=== PATIENT | female | born 1945 | race Caucasian/White ===

== ENCOUNTER → 2020-03-29 | Outpatient (REF) | payer MEDICARE, OTHER | LOC: M LAB REF 17:15 | PROVIDERS: ATTEND Nurse Practitioner Family | DX: N39.0 Urinary tract infection, site not specified (principal) ==

== ENCOUNTER → 2020-05-29 | Outpatient (REF) | payer MEDICARE, OTHER ==
[2020-05-29 16:14] LABS: CREATININE, URINE 33.1 MG/DL; MALB URINE SIEMENS < 5.0 MG/L; MAU/CREAT RATIO 15.1 MCG/MG (0.0-30.0)
== END ==
LOC: M LAB REF 15:21
PROVIDERS: ATTEND Nurse Practitioner Family
DX: E11.9 Type 2 diabetes mellitus without complications (principal)

== ENCOUNTER 2021-03-22 08:16 | Day surgery (SDC) | payer MEDICARE, OTHER ==
[~2021-03-22] VITALS: Ht 154.9 cm; Wt 77.6 kg
[~2021-03-22 08:16] MED LIST: BACITRACIN PWD 50,000 UNITS VIAL As Ordered ONE; BUPIVACAINE HCL 0.5% 30 ML VIAL As Ordered ONE; CARV3.12 PO; CIDA500T2 PO; FEBU40TA2 PO; FOLI1TAB11 PO; GLYB2.5T7 PO; IRBE300T7 PO; LANTINJ4 SC; LIDOCAINE 1% MDV 20ML VIAL SQ PRN; LIDOCAINE 1% SDV 30ML VIAL As Ordered ONE; LR 1,000 ML IV ONE; MAGN500T2 PO; NEOSPORIN GU IRRIG 20 ML VIAL As Ordered ONE; PANT40TA29 PO; PROBCAP14 PO; SIMV20TA22 PO; TORS20TA2 PO; dexameTHASONE 4 MG/ML 1ML VIAL (J1100 PER 1MG) As Ordered ONE
[2021-03-22] MEDS ORDERED: ACETAMINOPHEN 1000MG 100ML IV BTL (OFIRMEV) (J0131 PER 10MG) As Ordered ONE (08:57)
[2021-03-22] MEDS ORDERED: propofoL 200 MG/20 ML VIAL As Ordered ONE ×3 (08:57→11:37)
[2021-03-22] MEDS ORDERED: LIDOCAINE 2% 100MG/5ML SDV (FOR ANES.) As Ordered ONE (08:57)
[2021-03-22] MEDS ORDERED: fentaNYL 100 MCG/2 ML INJECTION (J3010) As Ordered ONE (08:58)
[2021-03-22] MEDS ORDERED: VANCOMYCIN HCL 1,000 MG, VIAL MATE ADAPTER 1 EACH in NS 250 ML IV ONE (09:05)
[2021-03-22] MEDS ORDERED: VANCOMYCIN 1000MG/20ML VIAL As Ordered ONE (09:08)
[2021-03-22 12:50] VITALS: BP 168/74
--- NOTE | 2021-03-22 12:59 | REP ---
INDICATION: HALLUX VALGUS AND BUNIONETTE LEFT FOOT. COMPARISON: None. TECHNIQUE: Three views right foot. FINDINGS: Plate and screws fuse the 1st metatarsophalangeal joint. The osseous structures are intact and well aligned. There is mild calcaneal spurring. IMPRESSION: Osseous structures well aligned, with metallic hardware fusing the 1st metatarsophalangeal joint. <Electronically signed by Molina Atkins > 03/22/21 [id number]
--- NOTE | 2021-03-23 09:36 | RO ---
OPERATIVE NOTE DATE OF OPERATION: 03/22/2021 PREOPERATIVE DIAGNOSIS: Hallux valgus with arthritis 1st metatarsophalangeal joint right foot. POSTOPERATIVE DIAGNOSIS: Hallux valgus with arthritis 1st metatarsophalangeal joint right foot. PROCEDURE: Fusion 1st metatarsophalangeal joint right foot. SURGEON: William Galdamez DPM FLEXOGRAPHIC PRINTING MACHINIST: None. ANESTHESIA: Local, MAC. IRRIGATION: Dilute Bacitracin, Neomycin and Polymyxin B solution. HARDWARE UTILIZED: Arthrex small MTP plate with locking and nonlocking screw configuration right foot. HEMOSTASIS: Ankle pneumatic tourniquet at 250 mmHg for 64 minutes. DESCRIPTION OF PROCEDURE: On 03/22/2021 this 75-year-old white female was taken from her hospital room to operating room and placed on the operating table in supine position. Following induction of IV sedation and local regional anesthesia the right lower extremity was prepped and draped in usual aseptic manner. Attention was directed to the patient's right foot where there was noted to be a hallux valgus deformity with arthritis. At this time a 6 cm incision was placed over the 1st metatarsophalangeal joint and the incision was deepened through subcutaneous tissues. Linear capsulotomy was performed in the same plane as original skin incision and capsular and periosteal structures were dissected free in one continuous layer dorsal, medial and lateral thus creating capsular periosteal type envelope. Looking at the cartilage on the proximal phalanx 80% of the articular cartilage was eroded. Inspection of the 1st metatarsal revealed approximately 80% of the articular cartilage to be eroded. Therefore, a bunionectomy could not be performed. Therefore, a fusion was performed on the 1st metatarsophalangeal joint utilizing cup and cone reaming system. The 1st metatarsal and proximal phalanx were reamed of its articular cartilage. Any remaining cartilage was then curetted. The joint surfaces were fenestrated with 0.62 Paul wire to promote fusion. The wound was flushed with copious amounts of Bacitracin, Neomycin and Polymyxin B solution. Utilizing a sagittal saw all spurring around the proximal phalanx and 1st metatarsal were reduced and extirpated from the wound. Synovectomy was performed on the 1st metatarsophalangeal joint capsule. Hallux was placed in anatomic position with approximately 5 mm of dorsiflexion at the hallux from the weightbearing surface with normal amount of valgus position of the toe and nail plate parallel to the plantar weightbearing surface. A compression screw was placed across the 1st metatarsophalangeal joint in distal medial to plantar proximal orientation utilizing C-arm imagery. Good compression was noted at the fusion site. Plate was then placed on the 1st metatarsophalangeal joint and locking and nonlocking screws were utilized. The compression screw across the 1st metatarsophalangeal joint was 3.0 x 36, nonlocking screws were 3 mm x 18 mm and locking screws were 3.0 x 14, 16, 16 and 18. Fusion site was stable in all three cardinal planes. The wound was flushed with copious amounts of dilute Bacitracin, Neomycin, Polymyxin B solution. Attention was directed toward closure with capsular structures were coapted and maintained utilizing 2-0 Monocryl in simple interrupted type fashion, subcutaneous tissues were coapted and maintained utilizing 4-0 Monocryl in simple interrupted type fashion and skin incisions were coapted and maintained utilizing 4-0 nylon in simple interrupted type fashion. Following the completion of the surgical procedure 4 mg of dexamethasone sodium phosphate was instilled proximal to the surgical site. Attention was directed toward bandaging. Sterile compression bandage was applied consisting of Adaptic, 4 x 4s, 4 x 4 splints, Layne, Kerlix and Coban. Ankle pneumatic tourniquet was rapidly deflated and instantaneous capillary refilling time was noted digits 1-5 in patient's foot. Postoperative instructions were given upon discharge.
== END 2021-03-22 12:55 | disposition home or self-care (01) ==
LOC: M SDC 08:16
PROVIDERS: ATTEND Podiatrist
DX: M20.11 Hallux valgus (acquired), right foot (principal); I12.9 Hypertensive chronic kidney disease with stage 1 through stage 4 chronic kidney disease, or unspecified chronic kidney disease; E78.5 Hyperlipidemia, unspecified; N18.30 Chronic kidney disease, stage 3 unspecified; E11.9 Type 2 diabetes mellitus without complications; D64.9 Anemia, unspecified; Z79.4 Long term (current) use of insulin; Z79.899 Other long term (current) drug therapy; Z88.0 Allergy status to penicillin; Z88.2 Allergy status to sulfonamides
CPT/HCPCS: 28750; 73630; 76000; 88300; C1713; J0131; J1100; J3010; J3370

== ENCOUNTER → 2021-06-06 | Outpatient (REF) | payer MEDICARE, OTHER ==
[~2021-06-06] MED LIST changes: -BACITRACIN PWD 50,000 UNITS VIAL As Ordered ONE; -BUPIVACAINE HCL 0.5% 30 ML VIAL As Ordered ONE; -LIDOCAINE 1% MDV 20ML VIAL SQ PRN; -LIDOCAINE 1% SDV 30ML VIAL As Ordered ONE; -LR 1,000 ML IV ONE; -NEOSPORIN GU IRRIG 20 ML VIAL As Ordered ONE; -dexameTHASONE 4 MG/ML 1ML VIAL (J1100 PER 1MG) As Ordered ONE
== END ==
LOC: M LAB REF 17:23
PROVIDERS: ATTEND Nurse Practitioner Family
DX: E83.42 Hypomagnesemia (principal)

== ENCOUNTER → 2021-09-02 | Outpatient (REF) | payer MEDICARE, OTHER ==
[2021-09-02 20:16] LABS: CREATININE, URINE 25.8 MG/DL; MALB URINE SIEMENS 13.5 MG/L; MAU/CREAT RATIO 52.3 MCG/MG (0.0-30.0)
== END ==
LOC: M LAB REF 17:32
PROVIDERS: ATTEND Nurse Practitioner Family
DX: E11.9 Type 2 diabetes mellitus without complications (principal)

== ENCOUNTER → 2022-08-28 | Outpatient (REF) | payer MEDICARE, OTHER ==
[2022-08-28 20:09] LABS: CREATININE, URINE 42.5 MG/DL; MALB URINE SIEMENS 29.4 MG/L; MAU/CREAT RATIO 69.1 MCG/MG (0.0-30.0)
== END ==
LOC: M LAB REF 16:50
PROVIDERS: ATTEND Nurse Practitioner Family
DX: E11.9 Type 2 diabetes mellitus without complications (principal)

== ENCOUNTER → 2024-06-10 | Outpatient (REF) | payer MEDICARE, OTHER ==
[~2024-06-10] MED LIST changes: -FEBU40TA2 PO; +FEBU40TA6 PO; +IRBE300T25 PO; -IRBE300T7 PO
[2024-06-10 18:10] LABS: FERRITIN 114.6 NG/ML (7.3-270.7)
== END ==
LOC: M LAB REF 17:09
PROVIDERS: ATTEND Nurse Practitioner Family
DX: D50.9 Iron deficiency anemia, unspecified (principal)